=== PATIENT | female | born 1955 | race Hispanic/Latino ===

== ENCOUNTER 2017-10-16 08:12 | Outpatient (CLI) | payer MEDICARE | END 2017-10-16 08:13 | disposition home or self-care (01) | LOC: BICMAMMO 08:12 | PROVIDERS: ATTEND Family Medicine | DX: Z12.31 Encounter for screening mammogram for malignant neoplasm of breast (principal); Z85.41 Personal history of malignant neoplasm of cervix uteri | CPT/HCPCS: 77063; 77067 ==

== ENCOUNTER 2019-03-22 10:29 | Outpatient (CLI) | payer MEDICARE ==
--- NOTE | 2019-03-22 11:47 | MMO ---
Bilateral MAMMO Bilat Screen [facility]ER. CLINICAL HISTORY: Patient is 63 years old and is seen for screening. The patient has no family history of breast cancer. The patient has no personal history of cancer. VIEWS: The views performed were: bilateral craniocaudal with tomosynthesis and bilateral mediolateral oblique with tomosynthesis. FILMS COMPARED: The present examination has been compared to prior imaging studies performed at [facility] on 08/15/2014, 10/02/2015, 10/14/2016 and 10/16/2017. This study has been interpreted with the assistance of computer-aided detection. MAMMOGRAM FINDINGS: There are scattered fibroglandular densities. There are benign appearing and vascular calcifications seen in both breasts. There are no suspicious masses, suspicious calcifications, or new areas of architectural distortion. IMPRESSION: THERE IS NO MAMMOGRAPHIC EVIDENCE OF MALIGNANCY. A ROUTINE FOLLOW-UP MAMMOGRAM IN 1 YEAR IS RECOMMENDED. THE RESULTS OF THIS EXAM WERE SENT TO THE PATIENT. ACR BI-RADS Category 2 - Benign finding MAMMOGRAPHY NOTE: 1. A negative mammogram report should not delay a biopsy if a dominant of clinically suspicious mass is present. 2. Approximately 10% to 15% of breast cancers are not detected by mammography. 3. Adenosis and dense breasts may obscure an underlying neoplasm. Reported by: BERTHA ACOSTA MD Electonically Signed: [id number]
== END 2019-03-22 10:30 | disposition home or self-care (01) ==
LOC: BICMAMMO 10:29
PROVIDERS: ATTEND Nurse Practitioner Family
DX: Z12.31 Encounter for screening mammogram for malignant neoplasm of breast (principal)
CPT/HCPCS: 77063; 77067

== ENCOUNTER 2020-04-15 12:13 | Inpatient (IN) | payer MEDICARE ==
[~2020-04-15 12:13] MED LIST: Iopamidol 370 76% 100 ML VIAL ONE
--- NOTE | 2020-04-15 12:52 | CT ---
CT Brain WO Con: 04/15/2020 12:30 PM CLINICAL HISTORY: Level 2 stroke alert; left-sided facial droop with dysarthria and left arm weakness . IMAGING TECHNIQUE: Multiple CT images were obtained of the brain without IV contrast. COMPARISON: Prior CT the brain dated February 28, 2005 FINDINGS: BRAIN: Evidence of acute infarct: There is loss of the normal blackburn-white differentiation involving the late ral right frontal lobe and right anterior insular cortex on image 11 of series 2 consistent with acute ischemia. Evidence of chronic ischemic change:There is a mild chronic small vessel matter ischemic change. Ther e is a perivascular space involving the inferior aspect of the right globus pallidus. Evidence of intracranial hemorrhage: None. Evidence of brain volume loss:None. Evidence of midline shift: Third ventricle and septum pellucidum are midline. Ventricles: Normal. No hydrocephalus. SKULL: Intact. VISUALIZED PARANASAL SINUSES: There is mild mucosal thickening and air-fluid level within the right sphenoid sinus. MASTOID AIR CELLS: There is a partial mastoidectomy involving the left mastoid air cells. Right mast oid air cells are clear. EXTRACRANIAL SOFT TISSUES: Normal. IMPRESSION: 1. Findings of acute infarct involving the anterior division of the right MCA affecting the right fro ntal lobe and anterior right insular cortex. No intracranial hemorrhage demonstrated. 2. Findings called to Dr. Smith at 12:49 PM on April 15, 2020 3. Mild acute sphenoid sinusitis. 4. Postsurgical change of partial left mastoidectomy.
--- NOTE | 2020-04-15 13:15 | CT ---
CTA of the head with IV contrast and 3-D reformatted imaging. CTA of the neck with IV contrast and 3-D reformatted imaging. INDICATION: 64-year-old female last seen normal last evening with left-sided facial droop, dysarthria and left arm weakness COMPARISON: Noncontrast CT of the brain dated April 15, 2020 and a CTA of the chest dated 6 FINDINGS: CTA OF THE HEAD WITH CONTRAST: CTA OF THE BRAIN: Right ICA: Patent. Right MCA: There is occlusion of the anterior M2 branch of the right MCA. Right SANDOR: Patent. ACOM: Patent. Left ICA: Patent. Left MCA: Patent. Left SANDOR: Patent. PCOMs: There is a origin to the right ASSOCIATE FINANCIAL ADVISOR. Visualized aspects of the left P-comm appear within normal limits. Vertebral arteries: Patent. Basilar Artery: Patent. line manager: origin of the right ASSOCIATE FINANCIAL ADVISOR. Both line manager appear patent. Incidentals: There is diminished cortical vascularity involving the anterior division of the right M CA. CTA OF THE NECK WITH CONTRAST: Right CCA: Patent. Right ICA: Patent. Right Subclavian: Patent. Right Vertebral Artery: Patent. Left CCA: Patent. Left ICA: Patent. Left Subclavian: Patent. Left Vertebral Artery: Patent. Aerodigestive tract: Clear. Parotids/Submandibular/Thyroid glands: Normal. Lymph nodes: No pathologically enlarged lymph nodes. Lung Apices: There are scattered areas of reticular nodularity within both upper lobes. There are pr ominent lymph nodes within the hilar regions and mediastinum. There is a 1.3 cm pretracheal lymph node. There is a 1.8 cm right hilar lymph node. There is a 1.2 cm prevascular lymph node. There is a 1.4 cm lymph node projecting between the esophagus and trachea. There is also some interstitial prominence and suspicion for small bilateral pleural effusions. Bones: No acute osseous abnormality. Incidentals: None. IMPRESSION: 1. Complete occlusion of the anterior M2 branch of the right MCA. 2. Scattered reticular nodularity of both upper lobes with prominent lymphadenopathy is suspicious fo r malignant lymphadenopathy and pulmonary metastatic disease. Follow-up CT of the chest, abdomen and pelvis with IV contrast is recommended for additional evaluation. 3. Interstitial prominence with small bilateral pleural effusions. Recommend correlation for CHF. 4. Findings discussed with Dr. Smith at 1:00 PM on April 15, 2020.
[2020-04-15 13:42] LABS: #Basophils 0.1 thou/uL (0.0-0.2); #Lymphocytes 1.3 thou/uL (1.20-3.40); #Monocytes 0.7 thou/uL (0.11-0.59); #Neutrophils 11.8 thou/uL (1.40-6.50); %Basophils 0.4 % (0.0-1.0); %Eosinophils 0.2 % (0.0-10.0); %Lymphocytes 9.3 % (21.0-51.0); %Monocytes 5.3 % (0.0-10.0); %Neutrophils 84.8 % (42.0-75.0); Hemoglobin 10.5 g/dL (12.0-16.0); Mean Corpuscular HGB CONC 32.7 g/dL (32.0-36.0); Mean Corpuscular Hemoglobin 28.1 pg (27.0-31.0); Mean Corpuscular Volume 85.9 fL (78.0-98.0); Mean Platelet Volume 9.3 fL (7.4-10.4); Platelet Count 210 thou/uL (130-400); RBC Distribution Width 13.7 % (11.5-14.5); Red Blood Cell (RBC) Count 3.75 mill/uL (4.20-5.40); White Blood Cell (WBC) Count 13.9 thou/uL (4.8-10.8)
[2020-04-15 13:57] LABS: INR-International Normal Ratio 1.2; PTT 33.5 sec (22.9-36.1); Prothrombin Time 15.2 sec (12.0-14.7)
[2020-04-15 14:11] LABS: ALT (SGPT) 12 U/L (8-55); AST (SGOT) 11 U/L (5-34); Albumin 3.8 g/dL (3.4-4.8); Alkaline Phosphatase 88 U/L (40-110); Anion Gap 16 mmol/L (10-20); BUN (Urea Nitrogen) 12 mg/dL (9.8-20.1); Bilirubin, Total 0.7 mg/dL (0.2-1.2); Calc. Creatinine Clearance 0 mL/min (70-130); Calcium 8.3 mg/dL (7.8-10.44); Carbon Dioxide 24 mmol/L (23-31); Chloride 101 mmol/L (98-107); Globulin 3.4 g/dL (2.4-3.5); Glucose 247 mg/dL (80-115); Potassium 4.2 mmol/L (3.5-5.1); Protein, Total 7.2 g/dL (6.0-8.3); Sodium 137 mmol/L (136-145)
[2020-04-15] MEDS ORDERED: Aspirin 325 MG TAB ONE (14:38)
--- NOTE | 2020-04-15 14:42 | RAD ---
PORTABLE CHEST ONE VIEW: 04/15/20 at 1:45 p.m. HISTORY: Left facial droop. COMPARISON: 06/14/15. FINDINGS/IMPRESSION: The heart size is prominent. There is pulmonary vascular congestion. No lobar consolidation, pneumoth oraces or pleural effusions are seen. Patchy air space opacities in the right lower lobe cannot be ex cluded. POS: AH
[2020-04-15] MEDS ORDERED: Furosemide 40 MG/4 ML VIAL ONE (15:37)
[2020-04-15] MEDS ORDERED: Acetaminophen 325 MG TAB PO PRN (16:30)
[2020-04-15] MEDS ORDERED: Dextrose 50% Abboject 50 ML SYRINGE SLOW IVP PRN (16:30)
[2020-04-15] MEDS ORDERED: Dextrose 5% in Water 1,000 ML IV PRN (16:30)
[2020-04-15] MEDS ORDERED: hydrALAZINE 20 MG/ML VIAL SLOW IVP PRN (16:38)
[2020-04-15] MEDS ORDERED: Labetalol HCl 100 MG/20 ML VIAL SLOW IVP PRN (16:38)
[2020-04-15] MEDS ORDERED: HumaLOG 300 UNITS/3 ML VIAL SC PRN (16:47)
--- NOTE | 2020-04-15 17:01 | PDOC.HHP ---
Hospitalist HPI - History of Present Illness History of Present Illness: ADMISSION DATE: 04/15/2020 TIME OF ASSESSMENT: 1545 PRIMARY CARE PHYSICIAN: Kevin CHIEF COMPLAINT: Facial droop, wheezing HPI: Patient is a 64-year-old female past medical history significant for diabetes mellitus type 2 and hyperlipidemia. She presents to the ER today after having left-sided facial droop, dysarthria, and left arm weakness that started last night. Patient has also recently been having some wheezing and shortness of breath. She denies orthopnea but states the difficulty breathing has slowly progressed. Denies edema, GI symptoms, contact with sick persons. EMS administered a breathing treatment prior to arrival. Patient states she has had a sharp pain in the middle of her chest and also left arm pain on and off for 4 days. She endorses feeling more tired for the past 3 weeks. Family does state that patient has had difficulty swallowing for some time and usually coughs when she eats. ED COURSE: Vital Signs: Blood pressure 108/88, pulse 90, respiratory rate 18, 98% on 2 L, 98.6 oral Today in the ER they completed brain CT, [place] with contrast, chest x-ray, laboratory work, Covid swab. She was administered furosemide 40 mg IV and aspirin 324 mg p.o. PAST MEDICAL HISTORY: Hyperlipidemia, diabetes mellitus type 2, ovarian cancertreated PAST SURGICAL HISTORY: Cholecystectomy, tonsillectomy, ovarian cyst removal SOCIAL HISTORY: Patient lives at home with family. Denies alcohol, drug, tobacco use. FAMILY HISTORY: Diabetes mellitus type 2 ALLERGIES: No known drug allergies CURRENT MEDICATIONS: Metformin 500 mg once daily Lipitor 10 mg once daily Hospitalist ROS - Review of Systems Respiratory: reports: shortness of breath, SOB with excertion, wheezing Cardiovascular: reports: chest pain All other systems reviewed; all pertinent +/- noted in HPI/Subj - Exam General Appearance: awake alert Eye: PERRL ENT: normocephalic atraumatic Heart: RRR, no murmur, no gallops, normal peripheral pulses Respiratory: normal chest expansion, tachypneic, wheezes Gastrointestinal: soft, non-tender, non-distended, normal bowel sounds Extremities: no edema Skin - other findings: healing burn to R foot Neurological: facial droop Psychiatric: A&O x 3 Hospitalist Results - Labs Result Diagrams: 04/15/20 13:30 04/15/20 13:30 Lab results: WBC 13.9 thou/uL (4.8-10.8) H 04/15/20 13:30 Hgb 10.5 g/dL (12.0-16.0) L 04/15/20 13:30 Hct 32.2 % (36.0-47.0) L 04/15/20 13:30 MCV 85.9 fL (78.0-98.0) 04/15/20 13:30 Plt Count 210 thou/uL (130-400) 04/15/20 13:30 Neutrophils % 84.8 % (42.0-75.0) H 04/15/20 13:30 Sodium 137 mmol/L (136-145) 04/15/20 13:30 Potassium 4.2 mmol/L (3.5-5.1) 04/15/20 13:30 Chloride 101 mmol/L (98-107) 04/15/20 13:30 Carbon Dioxide 24 mmol/L (23-31) 04/15/20 13:30 BUN 12 mg/dL (9.8-20.1) 04/15/20 13:30 Creatinine 1.05 mg/dL (0.6-1.1) 04/15/20 13:30 Glucose 247 mg/dL (80-115) H 04/15/20 13:30 Calcium 8.3 mg/dL (7.8-10.44) 04/15/20 13:30 Total Bilirubin 0.7 mg/dL (0.2-1.2) 04/15/20 13:30 AST 11 U/L (5-34) 04/15/20 13:30 ALT 12 U/L (8-55) 04/15/20 13:30 Alkaline Phosphatase 88 U/L (40-110) 04/15/20 13:30 Troponin I 0.026 ng/mL (< 0.028) 04/15/20 13:30 B-Natriuretic Peptide 638.3 pg/mL (0-100) H 04/15/20 13:30 Serum Total Protein 7.2 g/dL (6.0-8.3) 04/15/20 13:30 Albumin 3.8 g/dL (3.4-4.8) 04/15/20 13:30 - EKG Interpretation EKG: Sinus tachycardia 114 bpm - Radiology Interpretation Chest x-ray Status: image reviewed by me, report reviewed by me Additional Comment: FINDINGS/IMPRESSION: The heart size is prominent. There is pulmonary vascular congestion. No lobar consolidation, pneumothoraces or pleural effusions are seen. Patchy air space opacities in the right lower lobe cannot be excluded. CT scan - head Status: report reviewed by me Additional Comment: FINDINGS: CTA OF THE HEAD WITH CONTRAST: CTA OF THE BRAIN: Right ICA: Patent. Right MCA: There is occlusion of the anterior M2 branch of the right MCA. Right SANDOR: Patent. ACOM: Patent. Left ICA: Patent. Left MCA: Patent. Left SANDOR: Patent. PCOMs: There is a origin to the right LABEL PINKER. Visualized aspects of the left P-comm appear within normal limits. Vertebral arteries: Patent. Basilar Artery: Patent. temporary help agency referral clerk: origin of the right LABEL PINKER. Both temporary help agency referral clerk appear patent. Incidentals: There is diminished cortical vascularity involving the anterior division of the right MCA. CTA OF THE NECK WITH CONTRAST: Right CCA: Patent. Right ICA: Patent. Right Subclavian: Patent. Right Vertebral Artery: Patent. Left CCA: Patent. Left ICA: Patent. Left Subclavian: Patent. Left Vertebral Artery: Patent. Aerodigestive tract: Clear. Parotids/Submandibular/Thyroid glands: Normal. Lymph nodes: No pathologically enlarged lymph nodes. Lung Apices: There are scattered areas of reticular nodularity within both upper lobes. There are prominent lymph nodes within the hilar regions and mediastinum. There is a 1.3 cm pretracheal lymph node. There is a 1.8 cm right hilar lymph node. There is a 1.2 cm prevascular lymph node. There is a 1.4 cm lymph node projecting between the esophagus and trachea. There is also some interstitial prominence and suspicion for small bilateral pleural effusions. Bones: No acute osseous abnormality. Incidentals: None. IMPRESSION: 1. Complete occlusion of the anterior M2 branch of the right MCA. 2. Scattered reticular nodularity of both upper lobes with prominent lymphadenopathy is suspicious for malignant lymphadenopathy and pulmonary metastatic disease. Follow-up CT of the chest, abdomen and pelvis with IV contrast is recommended for additional evaluation. 3. Interstitial prominence with small bilateral pleural effusions. Recommend correlation for CHF CT Brain without contrast FINDINGS: BRAIN: Evidence of acute infarct: There is loss of the normal blackburn-white differentiation involving the lateral right frontal lobe and right anterior insular cortex on image 11 of series 2 consistent with acute ischemia. Evidence of chronic ischemic change:There is a mild chronic small vessel matter ischemic change. There is a perivascular space involving the inferior aspect of the right globus pallidus. Evidence of intracranial hemorrhage: None. Evidence of brain volume loss:None. Evidence of midline shift: Third ventricle and septum pellucidum are midline. Ventricles: Normal. No hydrocephalus. SKULL: Intact. VISUALIZED PARANASAL SINUSES: There is mild mucosal thickening and air-fluid level within the right sphenoid sinus. MASTOID AIR CELLS: There is a partial mastoidectomy involving the left mastoid air cells. Right mastoid air cells are clear. EXTRACRANIAL SOFT TISSUES: Normal. IMPRESSION: 1. Findings of acute infarct involving the anterior division of the right MCA affecting the right fro ntal lobe and anterior right insular cortex. No intracranial hemorrhage demonstrated. 2. Findings called to Dr. Smith at 12:49 PM on April 15, 2020 3. Mild acute sphenoid sinusitis. 4. Postsurgical change of partial left mastoidectomy. Hospitalist H&P A/P - Plan Plan: CVA Acute infarct of right MCA Neurology consultation Echo pending MRI in a.m. TSH, mag, FLP in a.m. Stroke team Aspirin to be taken rectally until can pass speech eval UA orderedis to be collected Dysphagia Failed nursing bedside swallow Has been coughing with eating and drinking for months Strict n.p.o. until speech therapy consultation Aspiration precautions New onset CHF Trial diuresisIV Lasix Pulmonary vascular congestion seen on x-ray, BNP 638.3 Strict I/Os Daily weights Chest Pain Continue to trend troponins Monitor on telemetry Incidental lymphadenopathy finding on CT Unknown etiology History of ovarian cancer We will obtain chest, abdomen, and pelvic CT with IV contrast as recommended by radiology tomorrow Hyperlipidemia FLP in a.m. Continue statin once passes swallow eval by speech therapy Diabetes mellitus type 2 Hold Metformin at this time due to contrast with CT Mild sliding scale insulin Accu-Cheks AC at bedtime VTE prophylaxis in place with SCDs and low-dose Lovenox CODE STATUS: Full Surrogate decision-maker is her daughterYesenia Patient and plan of care have been discussed and agreed upon with Dr. Galvan
[2020-04-15 17:48] VITALS: BMI 37.1
[2020-04-15 19:28] LABS: Bacteria/HPF 2+ HPF (None Seen); Bilirubin Negative (Negative); Blood, Urine Negative (Negative); Clarity Clear (Clear); Glucose, Urine (Dipstick) Normal (Negative); Ketone, Urine Negative (Negative); Leukocyte Negative Leu/uL (Negative); Nitrite Negative (Negative); Protein, Urine (Dipstick) Negative (Neg-Trace); RBC/HPF 0-3 HPF (0-3); Specific Gravity, Urine 1.013 (1.002-1.036); Squamous Epithelial 0-3 HPF (0-3); Urobilinogen Normal mg/dL (Less than 2)
[2020-04-16 05:05] LABS: #Basophils 0.1 thou/uL (0.0-0.2); #Lymphocytes 1.7 thou/uL (1.20-3.40); #Monocytes 0.4 thou/uL (0.11-0.59); %Basophils 0.5 % (0.0-1.0); %Eosinophils 0.4 % (0.0-10.0); %Lymphocytes 15.5 % (21.0-51.0); %Monocytes 3.5 % (0.0-10.0); %Neutrophils 80.2 % (42.0-75.0); Hemoglobin 10.1 g/dL (12.0-16.0); Mean Corpuscular Hemoglobin 29.4 pg (27.0-31.0); Mean Corpuscular Volume 86.3 fL (78.0-98.0); Mean Platelet Volume 9.6 fL (7.4-10.4); Platelet Count 225 thou/uL (130-400); RBC Distribution Width 13.9 % (11.5-14.5); Red Blood Cell (RBC) Count 3.45 mill/uL (4.20-5.40); White Blood Cell (WBC) Count 11.2 thou/uL (4.8-10.8)
[2020-04-16 05:39] LABS: Anion Gap 15 mmol/L (10-20); BUN (Urea Nitrogen) 12 mg/dL (9.8-20.1); Calc. Creatinine Clearance 79 mL/min (70-130); Calcium 8.9 mg/dL (7.8-10.44); Carbon Dioxide 30 mmol/L (23-31); Cardiac Risk 3.4 (Less than 4.5); Chloride 99 mmol/L (98-107); Cholesterol 165 mg/dl (< 200 Desired); Glucose 154 mg/dL (80-115); HDL Cholesterol 48 mg/dL (>60 Neg Risk); LDL Cholesterol, Calculated 99 mg/dL; Potassium 3.5 mmol/L (3.5-5.1); Sodium 140 mmol/L (136-145); Triglycerides 92 mg/dL (Less than 150)
[2020-04-16] MEDS: Furosemide 20 MG/2 ML VIAL SLOW IVP SCH ×2 (05:56→13:57)
[2020-04-16 06:24] LABS: SARS-CoV-2 MS2 Positive; SARS-CoV-2 N Gene Negative; SARS-CoV-2 S Gene Negative; SARS-CoV-2 by NAA Not Detected (NotDetected); SARS-CoV-2 orf1ab Negative
[2020-04-16] MEDS ORDERED: Enoxaparin Sodium 40 MG/0.4 ML SYRINGE SC SCH (09:00)
[2020-04-16] MEDS ORDERED: Aspirin 300 MG Suppository PR SCH (09:00)
--- NOTE | 2020-04-16 09:00 | MRI ---
MRI BRAIN WITHOUT CONTRAST: HISTORY: Left side weakness. FINDINGS: Correlation is made with the CT scan of the previous day. There is restricted diffusion in the right frontal lobe and right anterior insular cortex consistent with acute infarction. The gradient echo sequences demonstrate a small area of blooming in the anter ior aspect of this infarct consistent with blood products. No midline shift or abnormal extraaxial f luid collections are seen. IMPRESSION: Acute infarction in the anterior division of the right middle cerebral artery with a small amount of hemorrhage. POS: AH
[2020-04-16] MEDS ORDERED: Regadenoson 0.4 MG/5 ML SYRINGE ONE (09:02)
[2020-04-16] MEDS ORDERED: Aspirin 325 mg Enteric Coated Tablet PO SCH (10:00)
--- NOTE | 2020-04-16 11:07 | CT ---
CTA of the head with IV contrast and 3-D reformatted imaging. CTA of the neck with IV contrast and 3-D reformatted imaging. INDICATION: 64-year-old female last seen normal last evening with left-sided facial droop, dysarthria and left arm weakness COMPARISON: Noncontrast CT of the brain dated April 15, 2020 and a CTA of the chest dated 6 FINDINGS: CTA OF THE HEAD WITH CONTRAST: CTA OF THE BRAIN: Right ICA: Patent. Right MCA: There is occlusion of the anterior M2 branch of the right MCA. Right SANDOR: Patent. ACOM: Patent. Left ICA: Patent. Left MCA: Patent. Left SANDOR: Patent. PCOMs: There is a origin to the right STATISTICAL TECHNICIAN. Visualized aspects of the left P-comm appear within normal limits. Vertebral arteries: Patent. Basilar Artery: Patent. speech therapy teacher: origin of the right STATISTICAL TECHNICIAN. Both speech therapy teacher appear patent. Incidentals: There is diminished cortical vascularity involving the anterior division of the right M CA. CTA OF THE NECK WITH CONTRAST: Right CCA: Patent. Right ICA: Patent. Right Subclavian: Patent. Right Vertebral Artery: Patent. Left CCA: Patent. Left ICA: Patent. Left Subclavian: Patent. Left Vertebral Artery: Patent. Aerodigestive tract: Clear. Parotids/Submandibular/Thyroid glands: Normal. Lymph nodes: No pathologically enlarged lymph nodes. Lung Apices: There are scattered areas of reticular nodularity within both upper lobes. There are pr ominent lymph nodes within the hilar regions and mediastinum. There is a 1.3 cm pretracheal lymph node. There is a 1.8 cm right hilar lymph node. There is a 1.2 cm prevascular lymph node. There is a 1.4 cm lymph node projecting between the esophagus and trachea. There is also some interstitial prominence and suspicion for small bilateral pleural effusions. Bones: No acute osseous abnormality. Incidentals: None. IMPRESSION: 1. Complete occlusion of the anterior M2 branch of the right MCA. 2. Scattered reticular nodularity of both upper lobes with prominent lymphadenopathy is suspicious fo r malignant lymphadenopathy and pulmonary metastatic disease. Follow-up CT of the chest, abdomen and pelvis with IV contrast is recommended for additional evaluation. 3. Interstitial prominence with small bilateral pleural effusions. Recommend correlation for CHF. 4. Findings discussed with Dr. Smith at 1:00 PM on April 15, 2020. Transcribed Date/Time: 04/16/2020 11:06 AM
--- NOTE | 2020-04-16 11:21 | CON ---
DATE OF CONSULTATION: HISTORY OF PRESENT ILLNESS: Sarah Cameron is a 64-year-old female who does not speak Latvian and translation is provided by her daughter. She was admitted with left facial droop, left arm and leg weakness. She also gives a history of increasing dyspnea on exertion over the last 4 months. She denies any shortness of breath at rest or PND. She has not had any leg edema. She does have episodes of chest discomfort, one of which occurred on April 10 after taking a shower. She states that she had 1 hour of chest pressure that was definitely pleuritic in nature and was continuous. PAST MEDICAL HISTORY: Diabetes. She denies any history of hypertension or hypercholesterolemia. MEDICATIONS: 1. Vitamin C 1000 mg daily. 2. Vitamin B12 of 5000 mcg daily. 3. Fish oil 500 daily. 4. Garlic 1000 mg daily. 5. Losartan 25 daily. 6. Metformin 500 mg b.i.d. 7. Turmeric 500 mg daily. ALLERGIES: NONE. PAST SURGICAL HISTORY: Cholecystectomy, tonsillectomy, ovarian cyst removal. SOCIAL HISTORY: She does not smoke or drink. FAMILY HISTORY: Negative for coronary artery disease. REVIEW OF SYSTEMS: A 10-point review of systems is otherwise unremarkable. PHYSICAL EXAMINATION: VITAL SIGNS: Blood pressure 136/67, pulse of 95. HEENT: PERRL. NECK: Supple. CHEST: Clear. CARDIAC: S1 and S2 normal without any S3, S4, or murmurs. Carotid upstrokes normal without bruits. ABDOMEN: Normal bowel sounds without tenderness. Abdomen is obese. EXTREMITIES: Revealed no clubbing, cyanosis, or edema. NEUROLOGIC: Grossly intact with fairly normal left-sided strength. LABORATORY DATA: EKG reveals sinus tachycardia, but otherwise unremarkable. Head CT revealed an acute infarction involving the anterior division of the right middle cerebral artery. No intracranial hemorrhages demonstrated on head CT. CT of [place] revealed complete occlusion of the anterior M2 branch of the right middle cerebral artery. Brain MRI revealed acute infarction in the anterior division of the right middle cerebral artery with a small amount of hemorrhage. Hemoglobin 10.1, hematocrit 29.8, white count 11,200, platelets 225,000. Sodium 140, potassium 3.5, chloride 99, carbon dioxide 30, BUN 12, creatinine 0.86, glucose 156. BNP 638.3. Cholesterol 165, triglycerides 92, HDL 48, LDL 99. COVID negative. IMPRESSION: 1. Right middle cerebral artery cerebrovascular accident. Small amount of hemorrhage seen on brain MRI. 2. Exertional dyspnea for the last 4 months with elevated BNP. 3. Atypical chest discomfort which is pleuritic in nature. 4. Diabetes. 5. Hypercholesterolemia with LDL of 99 in a diabetic who has had a stroke. 6. Obesity. PLAN: Echocardiogram will be performed to assess left ventricular function. With her atypical chest discomfort, she will undergo adenosine Cardiolite testing. Even if an area of ischemia is found, she is not a candidate for cardiac catheterization at this time due to an area of bleed that was seen on her MRI. Job ID: [id number] MTDD
[2020-04-16] MEDS ORDERED: Iopamidol 370 76% 100 ML VIAL ONE (11:25)
--- NOTE | 2020-04-16 13:02 | PDOC.HOSPP ---
- Subjective Encounter Date: 04/16/20 Encounter Time: 09:30 Subjective: Patient is able to move her right side extremities without any obvious major weakness. Family at bedside. MRI result discussed with them. - Objective Vital Signs & Weight: Vital Signs (12 hours) Temp Pulse Resp BP Pulse Ox 04/16/20 11:10 97.6 F 87 18 100 04/16/20 08:00 98 04/16/20 07:05 98.2 F 95 20 136/67 98 04/16/20 04:00 98.1 F 99 16 135/65 98 Weight Weight 186 lb 8 oz I&O: 04/15/20 04/16/20 04/17/20 06:59 06:59 06:59 Output Total 600 Balance -600 Result Diagrams: 04/16/20 04:33 04/16/20 04:33 Additional Labs: Accuchecks 04/16/20 04/16/20 04/15/20 10:29 05:56 21:33 POC Glucose 234 H 156 H 139 H 04/15/20 13:06 POC Glucose 228 H Hospitalist ROS - Medication Medications: Active Medications Generic Name Dose Route Start Last Admin Trade Name Freq PRN Reason Stop Dose Admin Furosemide 20 mg 04/16/20 06:00 04/16/20 05:56 Furosemide 20 Mg/2 Ml Vial SLOW IVP 20 mg 0600,1400 VIR[place]IE Administration - Exam General Appearance: NAD, awake alert Eye: PERRL ENT: normocephalic atraumatic Neck: supple Heart: RRR, normal peripheral pulses Respiratory: CTAB, normal chest expansion Gastrointestinal: soft, normal bowel sounds Neurological: no focal deficits Psychiatric: A&O x 3 Hosp A/P - Plan acte infarct of right MCA Mildly hemorrhagic stroke Neurology consultation MRI --- acute infarct in the anterior division of the right MCA with a small amount of hemorrhage TSH in the normal range Echo showed EF of 55% with diastolic dysfunction moderate mitral regurgitation Stroke team Aspirin to be taken rectally until can pass speech eval------------------> disco ntinued aspirin and DVT prophylaxis of Lovenox for now. We will repeat the CT head tomorrow. Due to hemorrhagic stroke I will also consult neurosurgery. UA orderedis to be collected Dysphagia Failed nursing bedside swallow Has been coughing with eating and drinking for months Strict n.p.o. until speech therapy consultation Aspiration precautions New onset CHF Dyspnea on exertion Trial diuresisIV Lasix Pulmonary vascular congestion seen on x-ray, BNP 638.3 Strict I/Os Daily weights-----follow-up with the echo. Chest Pain Continue to trend troponins Monitor on telemetry --Appears ischemic work-up in terms of cath would not be advisable at this point given the hemorrhagic stroke -She will be going through stress test in the next few days Incidental lymphadenopathy finding on CT Unknown etiology History of ovarian cancer We will obtain chest, abdomen, and pelvic CT with IV contrast as recommended by radiology tomorrow Hyperlipidemia LDL of 99 Continue statin once passes swallow eval by speech therapy Diabetes mellitus type 2 Hold Metformin at this time due to contrast with CT Mild sliding scale insulin Accu-Cheks AC at bedtime VTE prophylaxis in place with SCDs Follow-up on [place] CT -We will repeat the CT head tomorrow to monitor the hemorrhagic stroke
--- NOTE | 2020-04-16 14:10 | CT ---
CT CHEST, ABDOMEN AND PELVIS WITH IV CONTRAST: 04/16/20 INDICATIONS: History of ovarian cancer. Lymphadenopathy. Comparison made to CT chest from 06/14/15. No prior CT abdomen available. CT CHEST: Review of the mediastinum reveals nonspecific lymph nodes. There is a paratracheal node measuring 1.5 cm not significantly changed since the prior exam. There are nonspecific carinal nodes which appear stable. No other evidence of adenopathy. Thoracic aorta and pulmonary arteries are unremarkable. The lungs appear clear. No infiltrate. There is mild vascular congestion. The osseous structures are unremarkable. Vertebral bodies maintain normal height. IMPRESSION: Nonspecific mediastinal lymph nodes are stable from 2016. No acute process. CT ABDOMEN AND PELVIS: Liver, spleen and pancreas unremarkable. Post cholecystectomy change. Stomach and duodenum unremarkab le. Adrenal glands normal. Kidneys unremarkable. Small bowel loops normal. Colon unremarkable. Aorta normal caliber. No adenopathy seen in the abdomen or pelvis. Images through the pelvis show mildly distended urinary bladder. The uterus and adnexa appear unremar kable. Osseous structures show no acute process. There is a posterior spondylolysis at L5-S1 with mil d anterior spondylolisthesis at this level. IMPRESSION: 1. No acute abnormality identified. 2. Posterior spondylolysis and grade I spondylolisthesis at L5-S1. POS: AGW
--- NOTE | 2020-04-16 14:38 | NM ---
Nuclear medicine Cardiac myocardial perfusion SPECT Ejection fraction study Wall motion cine: DATE:04/16/2020 12:09 PM INDICATION: New onset CHF TECHNIQUE: Stress only myocardial perfusion evaluation. Stress study: Technetium 99m-sestamibi (Cardiolite) dose:28.2 mCi FINDINGS: Cardiac (myocardial perfusion) SPECT There are appreciable myocardial perfusion defects. Ejection fraction study Left ventricular EF = 68% Wall motion cine Normal wall motion and thickening IMPRESSION: No appreciable myocardial perfusion defect seen on the stress only myocardial perfusion evaluation.
--- NOTE | 2020-04-16 17:02 | CON ---
DATE OF CONSULTATION: 04/16/2020 CONSULTING PHYSICIAN: Hospitalist Service. IMPRESSION: 1. 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 2. Diabetes. 3. Small secondary ischemic area hemorrhage of no clinical significance. PLAN: 1. Continue aspirin and a statin. 2. Further workup of lymphadenopathy as necessary. HISTORY OF PRESENT ILLNESS: Ms. Cameron is a 64-year-old female, presented with left-sided weakness and dysarthria yesterday. Initial CT was unremarkable. Her CT angiogram showed a right M2 segment occlusion. She also was noted to have some lymphadenopathy present. She had a followup MRI of the brain, which showed a similar area of ischemic injury as noted on CT. There is a small area of hemorrhage within the midst of it, less than a centimeter in size. Her echocardiogram showed ejection fraction of 50% to 55%. Her lab work was otherwise unremarkable. Her neurologic deficits have significantly improved. She was not on aspirin or statin prior to admission. PAST HISTORY: Diabetes. ALLERGIES: NONE. SOCIAL HISTORY: No tobacco or alcohol. FAMILY HISTORY: Positive for 2 COVID deaths in her siblings. REVIEW OF SYSTEMS: Ten-system review of systems otherwise negative. PHYSICAL EXAMINATION: GENERAL: She is an overweight, middle-aged woman, lying in bed, in no acute distress. VITAL SIGNS: Blood pressure 108/63, pulse 95, respirations 16, and temperature 98.2. HEENT: Pupils equal and reactive. Conjunctivae clear. Oropharynx clear. NECK: Supple. No lymphadenopathy. ABDOMEN: Soft and nontender. EXTREMITIES: No cyanosis or edema. SKIN: Clear. NEUROLOGIC: She was alert and cooperative. She mostly spoke Jamaican. I did not appreciate any dysarthria. Her face appeared to be symmetric. She had good antigravity strength in all 4 extremities. She has slightly diminished hand tobacco hanger on the left. Sensation was intact to light touch. She can walk independently. No abnormal movements were seen. LABORATORY STUDIES: White blood cell count 11.2 and hemoglobin 10.1. Serum electrolytes were unremarkable other than mildly elevated glucoses. Cholesterol ratio was 3.4. Her urine showed 4-6 white cells with 2+ bacteria. Her COVID test was negative. SUMMARY: A middle-aged female with thrombotic stroke on the right. There is a small secondary hemorrhage of no clinical consequence. I do not see any reason to stop aspirin. I would be happy to follow up with her as an outpatient. Job ID: [id number]
[2020-04-16] MEDS: HumaLOG 300 UNITS/3 ML VIAL SC PRN (17:48)
[2020-04-16] MEDS: Atorvastatin Calcium 40 MG TAB PO SCH (20:07)
[2020-04-17 05:04] LABS: #Basophils 0.1 thou/uL (0.0-0.2); #Eosinphils 0.2 thou/uL (0.0-0.7); #Lymphocytes 2.8 thou/uL (1.20-3.40); #Monocytes 0.5 thou/uL (0.11-0.59); #Neutrophils 6.7 thou/uL (1.40-6.50); %Basophils 0.5 % (0.0-1.0); %Eosinophils 2.2 % (0.0-10.0); %Lymphocytes 27.5 % (21.0-51.0); %Monocytes 4.8 % (0.0-10.0); %Neutrophils 64.9 % (42.0-75.0); Hemoglobin 10.5 g/dL (12.0-16.0); Mean Corpuscular HGB CONC 32.8 g/dL (32.0-36.0); Mean Corpuscular Hemoglobin 27.7 pg (27.0-31.0); Mean Corpuscular Volume 84.5 fL (78.0-98.0); Mean Platelet Volume 9.2 fL (7.4-10.4); Platelet Count 282 thou/uL (130-400); RBC Distribution Width 13.6 % (11.5-14.5); White Blood Cell (WBC) Count 10.3 thou/uL (4.8-10.8)
[2020-04-17 05:21] LABS: Anion Gap 13 mmol/L (10-20); BUN (Urea Nitrogen) 18 mg/dL (9.8-20.1); Calc. Creatinine Clearance 79 mL/min (70-130); Calcium 8.9 mg/dL (7.8-10.44); Carbon Dioxide 32 mmol/L (23-31); Chloride 96 mmol/L (98-107); Glucose 143 mg/dL (80-115); Potassium 3.1 mmol/L (3.5-5.1); Sodium 138 mmol/L (136-145)
[2020-04-17] MEDS: Furosemide 20 MG/2 ML VIAL SLOW IVP SCH ×2 (05:34→16:10)
[2020-04-17] MEDS ORDERED: Digoxin 0.5 MG/2 ML AMP SLOW IVP SCH ×4 (08:00→22:00)
[2020-04-17] MEDS: Aspirin 325 mg Enteric Coated Tablet PO SCH (08:09)
[2020-04-17] MEDS ORDERED: Potassium Chloride 20 MEQ TAB PO SCH (09:00)
[2020-04-17] MEDS ORDERED: Diltiazem 125 MG in Sodium Chloride 0.9% 100 ML IVPB SCH (09:15)
[2020-04-17] MEDS ORDERED: Dronedarone HCl 400 MG TAB PO SCH (09:45)
--- NOTE | 2020-04-17 10:52 | PDOC.HOSPP ---
- Subjective Encounter Date: 04/17/20 Encounter Time: 09:45 Subjective: Patient seen this morning. She has a mild headache on the right side. Her blood pressure is normotensive she does not have any blurriness or weakness or sensory impairment. She is ambulating. She is able to have her p.o. intake. Repeat CT scan showed unchanged minimal hypodensity in the anterior segment of the right MCA infarction which is evolving. no large volume hemorrhage - Objective Vital Signs & Weight: Vital Signs (12 hours) Temp Pulse Resp BP Pulse Ox 04/17/20 08:09 159 H 04/17/20 07:15 98.3 F 145 H 18 105/67 94 L 04/17/20 03:20 98.2 F 92 18 125/69 95 04/16/20 23:25 98.4 F 104 H 22 H 129/76 96 Weight Weight 187 lb 3.2 oz I&O: 04/16/20 04/17/20 04/18/20 06:59 06:59 06:59 Intake Total 1320 Output Total 600 1200 Balance -600 120 Result Diagrams: 04/17/20 04:34 04/17/20 04:34 Additional Labs: Accuchecks 04/17/20 04/16/20 04/16/20 05:27 19:49 16:59 POC Glucose 134 H 199 H 225 H Hospitalist ROS - Medication Medications: Active Medications Generic Name Dose Route Start Last Admin Trade Name Freq PRN Reason Stop Dose Admin Acetaminophen 650 mg 04/15/20 16:30 04/17/20 07:17 Acetaminophen 325 Mg Tab PO 650 mg Q4H PRN Administration Headache/Fever/Mild Pain (1-3) Aspirin 325 mg 04/17/20 09:00 04/17/20 08:09 Aspirin 325 Mg Enteric Coated Tablet PO 325 mg DAILY [place] Administration Atorvastatin Calcium 40 mg 04/16/20 21:00 04/16/20 20:07 Atorvastatin Calcium 40 Mg Tab PO 40 mg HS [place] Administration Dronedarone 400 mg 04/17/20 09:45 04/17/20 10:39 Dronedarone Hcl 400 Mg Tab PO 04/17/20 12:00 400 mg NOW [place] Administration Furosemide 20 mg 04/16/20 06:00 04/17/20 05:34 Furosemide 20 Mg/2 Ml Vial SLOW IVP 20 mg 0600,1400 [place] Administration Insulin Human Lispro 0 units 04/15/20 16:47 04/16/20 17:48 Humalog 300 Units/3 Ml Vial SC 3 units .MILD SLIDING SCALE PRN Administration Mild Correctional Scale Potassium Chloride 40 meq 04/17/20 09:00 04/17/20 10:39 Potassium Chloride 20 Meq Tab PO 04/17/20 11:00 40 meq 0900 [place] Administration Sodium Chloride 10 ml 04/15/20 16:30 04/16/20 13:57 Flush - Normal Saline 10 Ml Syringe IVF 10 ml PRN PRN Administration Saline Flush - Exam General Appearance: awake alert Eye: PERRL ENT: normocephalic atraumatic Neck: supple Heart: RRR Respiratory: CTAB, normal chest expansion Gastrointestinal: soft, normal bowel sounds Neurological: cranial nerve grossly intact, no focal deficits Psychiatric: normal affect, normal behavior, A&O x 3 Hosp A/P - Plan acte infarct of right MCA Mildly hemorrhagic stroke Neurology consultation MRI --- acute infarct in the anterior division of the right MCA with a small amount of hemorrhage TSH in the normal range Echo showed EF of 55% with diastolic dysfunction moderate mitral regurgitation Stroke team Aspirin to be taken rectally until can pass speech eval------------------> discontinued aspirin and DVT prophylaxis of Lovenox for now. We will repeat the CT head tomorrow. Due to hemorrhagic stroke I will also consult neurosurgery. UA orderedis to be collected Dysphagia Failed nursing bedside swallow Has been coughing with eating and drinking for months Strict n.p.o. until speech therapy consultation Aspiration precautions New onset CHF Dyspnea on exertion Trial diuresisIV Lasix Pulmonary vascular congestion seen on x-ray, BNP 638.3 Strict I/Os Daily weights-----follow-up with the echo. Chest Pain Continue to trend troponins Monitor on telemetry --Appears ischemic work-up in terms of cath would not be advisable at this point given the hemorrhagic stroke -She will be going through stress test in the next few days Incidental lymphadenopathy finding on CT Unknown etiology History of ovarian cancer We will obtain chest, abdomen, and pelvic CT with IV contrast as recommended by radiology tomorrow----------------> no abnormality noted Hyperlipidemia LDL of 99 Continue statin once passes swallow eval by speech therapy Diabetes mellitus type 2 Hold Metformin at this time due to contrast with CT Mild sliding scale insulin 18th she has a mild headache on the right side. Her blood pressure is normotensive she does not have any blurriness or weakness or sensory impairment. She is ambulating. She is able to have her p.o. intake. Repeat CT scan showed unchanged minimal hypodensity in the anterior segment of the right MCA infarction which is evolving. no large volume hemorrhage. Monitor her blood pressure and neurological status closely. Okay to resume aspirin and Lovenox for DVT prophylaxis. Discussed regarding rehab options and patient preferred to go home.
--- NOTE | 2020-04-17 11:07 | CT ---
CT Brain WO Con History: Evaluate bleed progression Comparison: Brain CT prior day Findings: The anterior MCA territory infarction history of all with minimal hyperdensity within the p arenchyma. No large volume hemorrhage. No midline shift. No mass effect. No new acute superimposed infarction ascites anterior right MCA inf arction. No effacement of the right lateral ventricle. Globes are intact. Old right lacunar infarct. Impression: Unchanged minimal hyperdensity within the anterior segment right MCA territory infarction which is evolving. No large volume hemorrhage.
[2020-04-17] MEDS: HumaLOG 300 UNITS/3 ML VIAL SC PRN ×2 (12:07→16:36)
[2020-04-17] MEDS: Dronedarone HCl 400 MG TAB PO SCH (16:36)
[2020-04-17] MEDS ORDERED: Sodium Chloride 0.9% 250 ML 250 ML IVPB SCH (17:30)
[2020-04-17] MEDS: Sodium Chloride 0.9% 1,000 ML IV SCH (18:43)
[2020-04-17] MEDS ORDERED: Diltiazem HCl 125 MG, Admixture Fee 1 EACH in Sodium Chloride 0.9% 100 ML IVPB PRN (20:43)
[2020-04-17] MEDS: Atorvastatin Calcium 40 MG TAB PO SCH (21:55)
[2020-04-17] MEDS: Digoxin 0.5 MG/2 ML AMP SLOW IVP PRN (22:23)
[2020-04-18 04:51] LABS: #Basophils 0.1 thou/uL (0.0-0.2); #Eosinphils 0.2 thou/uL (0.0-0.7); #Lymphocytes 3.3 thou/uL (1.20-3.40); #Monocytes 0.6 thou/uL (0.11-0.59); #Neutrophils 6.2 thou/uL (1.40-6.50); %Basophils 0.7 % (0.0-1.0); %Eosinophils 2.1 % (0.0-10.0); %Lymphocytes 31.4 % (21.0-51.0); %Monocytes 5.7 % (0.0-10.0); %Neutrophils 60.1 % (42.0-75.0); Hemoglobin 10.3 g/dL (12.0-16.0); Mean Corpuscular HGB CONC 31.6 g/dL (32.0-36.0); Mean Corpuscular Hemoglobin 26.8 pg (27.0-31.0); Mean Corpuscular Volume 84.7 fL (78.0-98.0); Mean Platelet Volume 8.7 fL (7.4-10.4); Platelet Count 306 thou/uL (130-400); RBC Distribution Width 13.3 % (11.5-14.5); Red Blood Cell (RBC) Count 3.85 mill/uL (4.20-5.40); White Blood Cell (WBC) Count 10.3 thou/uL (4.8-10.8)
[2020-04-18 05:10] LABS: Anion Gap 15 mmol/L (10-20); BUN (Urea Nitrogen) 21 mg/dL (9.8-20.1); Calc. Creatinine Clearance 68 mL/min (70-130); Calcium 8.6 mg/dL (7.8-10.44); Carbon Dioxide 27 mmol/L (23-31); Chloride 100 mmol/L (98-107); Glucose 134 mg/dL (80-115); Potassium 3.5 mmol/L (3.5-5.1); Sodium 138 mmol/L (136-145)
[2020-04-18] MEDS ORDERED: Potassium Chloride 20 MEQ TAB PO SCH (09:15)
[2020-04-18] MEDS: Aspirin 325 mg Enteric Coated Tablet PO SCH (09:27)
[2020-04-18] MEDS: Enoxaparin Sodium 40 MG/0.4 ML SYRINGE SC SCH (09:27)
[2020-04-18] MEDS: Dronedarone HCl 400 MG TAB PO SCH (09:27)
[2020-04-18] MEDS: Digoxin 0.5 MG/2 ML AMP SLOW IVP PRN (09:28)
--- NOTE | 2020-04-18 12:50 | PDOC.CPN ---
- Subjective Date: 04/18/20 Time: 12:00 Interval history: No overnight events. Remains in AF - Review of Systems General: denies: fever/chills, weight/appetite/sleep changes, night sweats, fatigue Respiratory: denies: cough, congestion, shortness of breath, exercise intolerance Gastrointestinal: denies: nausea, vomiting, diarrhea, constipation, abd pain, GI bleeding Neurological: reports: numbness, weakness - Objective Allergies/Adverse Reactions: Allergies Allergy/AdvReac Type Severity Reaction Status Date / Time No Known Allergies Allergy Verified 04/15/20 18:30 Visit Medications: Current Medications Acetaminophen (Acetaminophen 325 Mg Tab) 650 mg PO Q4H PRN PRN Reason: Headache/Fever/Mild Pain (1-3) Last Admin: 04/17/20 07:17 Dose: 650 mg Documented by: Aspirin (Aspirin 325 Mg Enteric Coated Tablet) 325 mg PO DAILY [facility] Last Admin: 04/18/20 09:27 Dose: 325 mg Documented by: Atorvastatin Calcium (Atorvastatin Calcium 40 Mg Tab) 40 mg PO HS [facility] Last Admin: 04/17/20 21:55 Dose: 40 mg Documented by: Dextrose/Water (Dextrose 50% Abboject 50 Ml Syringe) 25 gm SLOW IVP PRN PRN PRN Reason: Hypoglycemia Digoxin (Digoxin 0.5 Mg/2 Ml Amp) 0.125 mg SLOW IVP Q6H PRN PRN Reason: HR > 90 Last Admin: 04/18/20 09:28 Dose: 0.125 mg Documented by: Dronedarone (Dronedarone Hcl 400 Mg Tab) 400 mg PO BID-[facility] Last Admin: 04/18/20 09:27 Dose: 400 mg Documented by: Enoxaparin Sodium (Enoxaparin Sodium 40 Mg/0.4 Ml Syringe) 40 mg SC DAILY [facility] Last Admin: 04/18/20 09:27 Dose: 40 mg Documented by: Glucagon (Glucagon 1 Mg/Ml Vial) 1 mg IM PRN PRN PRN Reason: Hypoglycemia Hydralazine HCl (Hydralazine 20 Mg/Ml Vial) 10 mg SLOW IVP Q4H PRN PRN Reason: BP > 220/110 Dextrose/Water (D5w) 1,000 mls @ 0 mls/hr IV .Q0M PRN PRN Reason: Hypoglycemia Sodium Chloride (Normal Saline 0.9%) 1,000 mls @ 50 mls/hr IV .Q20H [place] Last Admin: 04/17/20 18:43 Dose: 1,000 mls Documented by: Diltiazem HCl 125 mg/Miscellaneous Medication 1 each/ Sodium Chloride 125 mls @ 2.5 mls/hr IVPB INF PRN; Protocol PRN Reason: HR SUSTAINED >120 & SBP >100 Insulin Human Lispro (Humalog 300 Units/3 Ml Vial) 0 units SC .MILD SLIDING SCALE PRN PRN Reason: Mild Correctional Scale Last Admin: 04/17/20 16:36 Dose: 3 units Documented by: Insulin Human Lispro (Humalog 300 Units/3 Ml Vial) 0 units SC .BEDTIME SLIDING SC PRN PRN Reason: Bedtime Correctional Scale Labetalol HCl (Labetalol Hcl 100 Mg/20 Ml Vial) 20 mg SLOW IVP Q1H PRN PRN Reason: BP > 220/110 Potassium Chloride (Potassium Chloride 20 Meq Tab) 20 meq PO BID-[facility] Sodium Chloride (Flush - Normal Saline 10 Ml Syringe) 10 ml IVF PRN PRN PRN Reason: Saline Flush Last Admin: 04/16/20 13:57 Dose: 10 ml Documented by: Vital Signs & Weight: Vital Signs Temp Pulse Resp BP BP Pulse Ox 04/18/20 11:15 98.2 F 111 H 17 85/69 L 95 04/18/20 09:28 116 H 04/18/20 07:30 110/75 04/18/20 07:08 98.8 F 98 20 96 04/18/20 03:38 98.2 F 98 20 109/55 L 95 Weight 187 lb 11.2 oz - Physical Exam General: no apparent distress HEENT: mucus membranes moist Cardiac: other (IRR IRR) Lungs: normal exam Abdomen: soft, non-tender Musculoskeletal: no pain - Labs Result Diagrams: 04/18/20 04:36 04/18/20 04:36 Troponin/CKMB Troponin I 0.026 ng/mL (< 0.028) 04/15/20 13:30 - Assessment/Plan Assessment/Plan: 1. CVA 2. AF Discussed with SHAYLEE. He recommnends stopping Multaq and rate-control only. Continue Dig and ASA. 04/18/2020 SHAYLEE Pt seen and examined DC multaq Pt with PAF and has been in afib over the last 2 days Pt at risk of repeat CVA (discussed with pt and family) but given hemmorhage, at risk of cerebral hemorrhage. Recommend rate cotrol and ASA (per Neurology). Recs on ACT timing per neurology
[2020-04-18] MEDS: HumaLOG 300 UNITS/3 ML VIAL SC PRN (13:31)
--- NOTE | 2020-04-18 15:21 | EKG ---
Test Reason : Blood Pressure : / mmHG Vent. Rate : 114 BPM Atrial Rate : 114 BPM P-R Int : 164 ms QRS Dur : 074 ms QT Int : 318 ms P-R-T Axes : 016 061 069 degrees QTc Int : 438 ms Sinus tachycardia Otherwise normal ECG Confirmed by BRENT LOPEZ DO ([id number]), restaurant expeditor MIRTHA ANDERSON ([id number]) on 04/18/2020 3:21:23 PM Referred By: Confirmed By:BRENT LOPEZ DO
[2020-04-18] MEDS: Potassium Chloride 20 MEQ TAB PO SCH (18:42)
[2020-04-18] MEDS: Sodium Chloride 0.9% 1,000 ML IV SCH (19:02)
--- NOTE | 2020-04-18 20:11 | PDOC.HOSPP ---
- Subjective Encounter Date: 04/18/20 Encounter Time: 19:00 Subjective: Patient seen and examined for acute CVA. Denies any new focal deficit. No chest pain or shortness of breath reported. - Objective Vital Signs & Weight: Vital Signs (12 hours) Temp Pulse Resp BP BP Pulse Ox 04/18/20 19:54 97.3 F L 90 18 94/69 99 04/18/20 15:04 98.7 F 89 16 107/83 97 04/18/20 13:35 103/77 04/18/20 11:15 98.2 F 111 H 17 85/69 L 95 04/18/20 09:28 116 H Weight Weight 187 lb 11.2 oz I&O: 04/17/20 04/18/20 04/19/20 06:59 06:59 06:59 Intake Total 1320 552 861 Output Total 1200 Balance 120 552 861 Result Diagrams: 04/19/20 04:38 04/19/20 04:38 Additional Labs: Accuchecks 04/18/20 04/18/20 04/18/20 16:30 11:09 05:58 POC Glucose 146 H 256 H 132 H 04/17/20 21:05 POC Glucose 154 H Radiology Reviewed by me: Yes (MRI brain reviewed) EKG Reviewed by me: Yes (Atrial fibrillation on telemetry) Hospitalist ROS - Review of Systems Respiratory: denies: cough, dry, shortness of breath, hemoptysis, SOB with excer tion, pleuritic pain, sputum, wheezing, other Cardiovascular: denies: chest pain, palpitations, orthopnea, paroxysmal noc. dyspnea, edema, light headedness, other - Medication Medications: Active Medications Generic Name Dose Route Start Last Admin Trade Name Freq PRN Reason Stop Dose Admin Acetaminophen 650 mg 04/15/20 16:30 04/17/20 07:17 Acetaminophen 325 Mg Tab PO 650 mg Q4H PRN Administration Headache/Fever/Mild Pain (1-3) Aspirin 325 mg 04/17/20 09:00 04/18/20 09:27 Aspirin 325 Mg Enteric Coated Tablet PO 325 mg DAILY [place] Administration Atorvastatin Calcium 40 mg 04/16/20 21:00 04/17/20 21:55 Atorvastatin Calcium 40 Mg Tab PO 40 mg HS [place] Administration Enoxaparin Sodium 40 mg 04/18/20 09:00 04/18/20 09:27 Enoxaparin Sodium 40 Mg/0.4 Ml Syringe SC 40 mg DAILY [place] Administration Sodium Chloride 1,000 mls @ 50 mls/hr 04/17/20 18:15 04/18/20 19:02 Normal Saline 0.9% IV 1,000 mls .Q20H [place] Administration Insulin Human Lispro 0 units 04/15/20 16:47 04/18/20 13:31 Humalog 300 Units/3 Ml Vial SC 4 units .MILD SLIDING SCALE PRN Administration Mild Correctional Scale Potassium Chloride 20 meq 04/18/20 17:00 04/18/20 18:42 Potassium Chloride 20 Meq Tab PO 20 meq BID-WM [place] Administration Sodium Chloride 10 ml 04/15/20 16:30 04/16/20 13:57 Flush - Normal Saline 10 Ml Syringe IVF 10 ml PRN PRN Administration Saline Flush - Exam General Appearance: NAD Neck: supple, no JVD Heart: no gallops, no rubs, irregular Respiratory: no rales, normal chest expansion Gastrointestinal: soft, non-distended Extremities: no cyanosis Neurological: no new deficit Psychiatric: normal affect, A&O x 3 Hosp A/P - Plan Patient is a 64-year-old female with diabetes mellitus type 2 and hyperlipidemia presented to the emergency room with strokelike symptoms. CTA of the head and neck showed complete occlusion of the anterior M2 branch of the right MCA. CT brain showed acute infarction in the right MCA distribution. She was started on aspirin. Chest x-ray showed pulmonary vascular congestion. There was some c oncern for malignancy on the CTA of the neck. She underwent CT scan of the chest abdomen and pelvis that showed nonspecific mediastinal lymph nodes which were stable since 2016. CT abdomen was negative for acute findings. MRI of the brain showed acute infarction in the anterior division of the right middle cerebral artery with a small amount of hemorrhage. Patient was evaluated by neurology who recommended aspirin with statin. Due to small amount of hemorrhage on the MRI of the brain the case was discussed with PA for Dr. Manrique who recommended repeat CT scan of the brain on 04/20 and to hold anticoagulation except for DVT prophylaxis and aspirin. Patient also had atypical chest pain for which she was evaluated by cardiology. Echocardiogram showed ejection fraction of 50 to 55% with diastolic dysfunction, moderate mitral regurgitation, moderate aortic regurgitation and mild tricuspid regurgitation. She underwent a stress test on 04/16 that was negative for reversible ischemia. On 04/17 patient converted to atrial flutter with heart rate in 130s to 150s. She was started on Multaq that was later discontinued. Her rate was controlled with digoxin. Assessment: Acute right MCA distribution CVA with small amount of hemorrhage New onset atrial fibrillation/flutter with RVR not a candidate for anticoagulation due to hemorrhagic conversion Atypical chest pain with negative stress test Hyperlipidemia Chronic diastolic heart failure Obesity with a BMI 37.2 Chronic anemia probably due to nutritional deficiency Hypokalemia Mediastinal lymphadenopathy of unclear etiology Swallow dysfunction Plan: Continue aspirin with statin. Check digoxin level in a.m. Cardiology and neurology input appreciated. Case discussed with neurosurgery who recommended repeat CT brain on 04/20. Hold anticoagulation for now until repeat CT on 1221 per neurosurgery. Continue Lovenox for DVT prophylaxis. Stroke team. Home health care set up. Continue other medications as above. Plan discussed with the family at the bedside.
[2020-04-18] MEDS: Atorvastatin Calcium 40 MG TAB PO SCH (21:16)
[2020-04-19 05:05] LABS: #Basophils 0.1 thou/uL (0.0-0.2); #Eosinphils 0.5 thou/uL (0.0-0.7); #Lymphocytes 2.5 thou/uL (1.20-3.40); #Monocytes 0.5 thou/uL (0.11-0.59); #Neutrophils 5.6 thou/uL (1.40-6.50); %Basophils 0.6 % (0.0-1.0); %Eosinophils 5.3 % (0.0-10.0); %Lymphocytes 27.3 % (21.0-51.0); %Monocytes 5.5 % (0.0-10.0); %Neutrophils 61.3 % (42.0-75.0); Hemoglobin 10.5 g/dL (12.0-16.0); Mean Corpuscular HGB CONC 32.6 g/dL (32.0-36.0); Mean Corpuscular Hemoglobin 27.9 pg (27.0-31.0); Mean Corpuscular Volume 85.4 fL (78.0-98.0); Mean Platelet Volume 8.9 fL (7.4-10.4); Platelet Count 288 thou/uL (130-400); RBC Distribution Width 13.2 % (11.5-14.5); Red Blood Cell (RBC) Count 3.76 mill/uL (4.20-5.40); White Blood Cell (WBC) Count 9.1 thou/uL (4.8-10.8)
[2020-04-19 05:25] LABS: Digoxin 0.63 ng/mL (0.8-2.0)
[2020-04-19 05:28] LABS: ALT (SGPT) 11 U/L (8-55); AST (SGOT) 15 U/L (5-34); Albumin 3.3 g/dL (3.4-4.8); Alkaline Phosphatase 69 U/L (40-110); Anion Gap 13 mmol/L (10-20); BUN (Urea Nitrogen) 20 mg/dL (9.8-20.1); Bilirubin, Total 0.2 mg/dL (0.2-1.2); Calc. Creatinine Clearance 73 mL/min (70-130); Calcium 8.6 mg/dL (7.8-10.44); Carbon Dioxide 25 mmol/L (23-31); Chloride 105 mmol/L (98-107); Globulin 3.7 g/dL (2.4-3.5); Glucose 148 mg/dL (80-115); Magnesium 2.1 mg/dL (1.6-2.6); Phosphorus 3.5 mg/dL (2.3-4.7); Sodium 139 mmol/L (136-145)
[2020-04-19] MEDS: Potassium Chloride 20 MEQ TAB PO SCH (09:43)
[2020-04-19] MEDS: Aspirin 325 mg Enteric Coated Tablet PO SCH (09:43)
[2020-04-19] MEDS: Enoxaparin Sodium 40 MG/0.4 ML SYRINGE SC SCH (09:43)
[2020-04-19] MEDS: HumaLOG 300 UNITS/3 ML VIAL SC PRN ×2 (11:18→17:19)
--- NOTE | 2020-04-19 15:06 | PDOC.HOSPP ---
- Subjective Encounter Date: 04/19/20 Encounter Time: 09:00 Subjective: Patient seen and examined for acute CVA. Denies any chest pain, shortness of breath, palpitations or new focal deficit. No fever or chills reported. Tolerating current consistency. - Objective Vital Signs & Weight: Vital Signs (12 hours) Temp Pulse Pulse Pulse Resp BP BP 04/19/20 11:57 98.1 F 84 16 04/19/20 10:06 101 H 101 H 147/84 H 111/54 L 04/19/20 08:00 04/19/20 07:54 98.4 F 76 16 04/19/20 03:47 98.5 F 98 18 BP Pulse Ox 04/19/20 11:57 122/71 94 L 04/19/20 10:06 04/19/20 08:00 94 L 04/19/20 07:54 129/82 94 L 04/19/20 03:47 112/71 95 Weight Weight 190 lb 8 oz I&O: 04/18/20 04/19/20 04/20/20 06:59 06:59 06:59 Intake Total 552 1564 960 Balance 552 1564 960 Result Diagrams: 04/19/20 04:38 04/19/20 04:38 Additional Labs: Accuchecks 04/19/20 04/19/20 04/18/20 10:41 05:37 20:34 POC Glucose 204 H 136 H 203 H 04/18/20 16:30 POC Glucose 146 H Abnormal Lab Results - Last 48 hrs 04/18/20 04:36: BUN 21 H, Creatinine 1.12 H 04/18/20 04:36: RBC 3.85 L, Hgb 10.3 L, Hct 32.6 L, MCH 26.8 L, MCHC 31.6 L, Monocytes # 0.6 H 04/19/20 04:38: Digoxin 0.63 L 04/19/20 04:38: Albumin 3.3 L, Globulin 3.7 H, Albumin/Globulin Ratio 0.9 L 04/19/20 04:38: RBC 3.76 L, Hgb 10.5 L, Hct 32.1 L EKG Reviewed by me: Yes (A. fib on telemetry) Hospitalist ROS - Review of Systems Cardiovascular: denies: chest pain, palpitations, orthopnea, paroxysmal noc. dyspnea, edema, light headedness, other Gastrointestinal: denies: nausea, vomiting, abdominal pain, diarrhea, constipa tion, melena, hematochezia, other - Medication Medications: Active Medications Generic Name Dose Route Start Last Admin Trade Name Freq PRN Reason Stop Dose Admin Acetaminophen 650 mg 04/15/20 16:30 04/17/20 07:17 Acetaminophen 325 Mg Tab PO 650 mg Q4H PRN Administration Headache/Fever/Mild Pain (1-3) Aspirin 325 mg 04/17/20 09:00 04/19/20 09:43 Aspirin 325 Mg Enteric Coated Tablet PO 325 mg DAILY [place] Administration Atorvastatin Calcium 40 mg 04/16/20 21:00 04/18/20 21:16 Atorvastatin Calcium 40 Mg Tab PO 40 mg HS [place] Administration Diltiazem HCl 30 mg 04/18/20 17:57 04/19/20 01:12 Diltiazem Hcl 30 Mg Tablet PO 30 mg Q6H PRN Administration HR >120 sustained Enoxaparin Sodium 40 mg 04/18/20 09:00 04/19/20 09:43 Enoxaparin Sodium 40 Mg/0.4 Ml Syringe SC 40 mg DAILY [place] Administration Sodium Chloride 1,000 mls @ 50 mls/hr 04/17/20 18:15 04/18/20 19:02 Normal Saline 0.9% IV 1,000 mls .Q20H [place] Administration Insulin Human Lispro 0 units 04/15/20 16:47 04/19/20 11:18 Humalog 300 Units/3 Ml Vial SC 3 units .MILD SLIDING SCALE PRN Administration Mild Correctional Scale Insulin Human Lispro 0 units 04/15/20 16:47 04/18/20 21:16 Humalog 300 Units/3 Ml Vial SC 2 unit .BEDTIME SLIDING SC PRN Administration Bedtime Correctional Scale Potassium Chloride 20 meq 04/18/20 17:00 04/19/20 09:43 Potassium Chloride 20 Meq Tab PO 20 meq BID-WM [place] Administration Sodium Chloride 10 ml 04/15/20 16:30 04/16/20 13:57 Flush - Normal Saline 10 Ml Syringe IVF 10 ml PRN PRN Administration Saline Flush - Exam General Appearance: NAD Heart: no gallops, irregular Respiratory: no wheezes, no ronchi Gastrointestinal: non-tender, non-distended, normal bowel sounds Extremities: no cyanosis, no clubbing Neurological: no new deficit Psychiatric: normal affect, A&O x 3 Hosp A/P - Plan DVT proph w/lovenox Patient is a 64-year-old female with diabetes mellitus type 2 and hyperlipidemia presented to the emergency room with stroke-like symptoms. CTA of the head and neck showed complete occlusion of the anterior M2 branch of the right MCA. CT brain showed acute infarction in the right MCA distribution. She was started on aspirin. Chest x-ray showed pulmonary vascular congestion. There was some concern for malignancy on the CTA of the neck. She underwent CT scan of the chest that showed nonspecific mediastinal lymph nodes which were stable since 2016. CT abdomen was negative for acute findings. MRI of the brain showed acute infarction in the anterior division of the right middle cerebral artery with a small amount of hemorrhage. Patient was evaluated by neurology who recommended aspirin with statin. Due to small amount of hemorrhage on the MRI of the brain the case was discussed with PA for Dr. Manrique who recommended repeat CT scan of the brain on 04/20 and to hold anticoagulation except for DVT prophylaxis and aspirin. Patient also had atypical chest pain for which she was evaluated by cardiology. Echocardiogram showed ejection fraction of 50 to 55% with diastolic dysfunction, moderate mitral regurgitation, moderate aortic regurgitation and mild tricuspid regurgitation. She underwent a stress test on 04/16 that was negative for reversible ischemia. On 04/17 patient converted to atrial flutter with heart rate in 130s to 150s. She was started on Multaq that was later discontinued. Her rate was controlled with digoxin. 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 Continue Lovenox for DVT prophylaxis. Discontinue potassium. DC IV fluids if tolerating p.o. Repeat CT brain in a.m.. Restart Metformin. Losartan on hold due to blood pressure on the lower side. Continue PT/OT/speech therapy. Start digoxin at 0.125 mg daily. DC planning
[2020-04-19] MEDS: metFORMIN 500 MG TAB PO SCH (17:19)
[2020-04-19] MEDS: Sodium Chloride 0.9% 1,000 ML IV SCH (17:24)
[2020-04-19] MEDS ORDERED: Mometasone Furoate 30 PUFF 220 MCG INH SCH (18:30)
[2020-04-19] MEDS: Atorvastatin Calcium 40 MG TAB PO SCH (20:29)
--- NOTE | 2020-04-20 08:19 | CT ---
Head CT without contrast 04/20/2020: COMPARISON: 04/17/2020 HISTORY: Stroke with hemorrhage, follow-up exam TECHNIQUE: Axial CT imaging at 5 mm intervals from vertex through skull base without contrast FINDINGS: The visualized paranasal sinuses and mastoid air cells demonstrate no acute findings. The p atient is status post left mastoidectomy. No displaced calvarial fracture. There is hypodensity consistent with cytotoxic edema within the MCA territory on the right which does not appear significa ntly changed when compared to the 04/17/2020 examination. There is hyperdensity within the inferior anterior aspect of this area of cytotoxic edema, best seen on axial image 9, consistent with associat ed intra-axial hemorrhage measuring up to 1.6 cm in AP dimension, stable. No significant midline shift or mass effect. IMPRESSION: Findings suggesting a stable hemorrhagic infarction of the right MCA territory.
[2020-04-20] MEDS ORDERED: Cyanocobalamin (Vitamin B-12) 1,000 MCG TAB PO SCH (09:00)
[2020-04-20] MEDS ORDERED: Ascorbic Acid 500 mg Chewable Tablet PO SCH (09:00)
[2020-04-20] MEDS ORDERED: Fish Oil 1,000 MG CAP PO SCH (09:00)
[2020-04-20] MEDS: Aspirin 325 mg Enteric Coated Tablet PO SCH (09:21)
[2020-04-20] MEDS: metFORMIN 500 MG TAB PO SCH (09:22)
[2020-04-20] MEDS: Enoxaparin Sodium 40 MG/0.4 ML SYRINGE SC SCH (09:22)
--- NOTE | 2020-04-20 10:06 | PRG ---
DATE OF SERVICE: 04/20/2020 SUBJECTIVE: Ms. Cameron is doing okay. OBJECTIVE: VITAL SIGNS: Resting heart rate is about 110, it goes up to 130 with minimal exertion. LUNGS: Clear. CARDIAC: Irregularly irregular. ABDOMEN: Soft, nontender. EXTREMITIES: No edema. ASSESSMENT: 1. Atrial fibrillation, rate not well controlled. 2. History of hypotension with IV cardizem. PLAN: Start Cardizem CD 120 mg a day and if blood pressure is adequate and heart rate adequately controlled this afternoon, can go home. Also is on anticoagulation due to the recent stroke. ADDENDUM: The patient is only receiving enoxaparin here. Anticoagulation is being held due to some intracranial bleeding. Decision about when to resume anticoagulation would need input from Neurology. Job ID: [id number]
[2020-04-20] MEDS: HumaLOG 300 UNITS/3 ML VIAL SC PRN (11:54)
[2020-04-20 15:45] VITALS: BP 112/63; TEMP 98.3
[2020-04-21] MEDS ORDERED: Aspirin 81 mg Enteric Coated Tablet PO SCH (09:00)
--- NOTE | 2020-04-21 13:24 | PDOC.DS.DS ---
Provider - Provider Date of Admission: 04/15/20 15:01 Date of Discharge: 04/20/20 Admitting Provider: Ascencion Galvan DO Primary Care Physician: [facility] Course - Hospital Course Hospital Course: Patient is a 64-year-old female with diabetes mellitus type 2 and hyperlipidemia presented to the emergency room with stroke-like symptoms. CTA of the head and neck showed complete occlusion of the anterior M2 branch of the right MCA. CT brain showed acute infarction in the right MCA distribution. She was started on aspirin. Chest x-ray showed pulmonary vascular congestion. There was some concern for malignancy on the CTA of the neck. She underwent CT scan of the chest that showed nonspecific mediastinal lymph nodes which were stable since 2016. CT abdomen was negative for acute findings. MRI of the brain showed acute infarction in the anterior division of the right middle cerebral artery with a small amount of hemorrhage. Patient was evaluated by neurology who recommended aspirin with statin. Due to small amount of hemorrhage on the MRI of the brain the case was discussed with PA for Dr. Manrique who recommended repeat CT scan of the brain on 04/20 and to hold anticoagulation except for DVT prophylaxis and aspirin. Patient had a repeat CT brain on 04/20 that showed stable hemorrhage. Neurosurgery recommended to hold anticoagulation for total of 2 weeks from admission. Patient can be started on Eliquis after the [address] Manrique's PA Robinson wasserman. Patient will be on aspirin only until then. Patient also had atypical chest pain for which she was evaluated by cardiology. Echocardiogram showed ejection fraction of 50 to 55% with diastolic dysfunction, moderate mitral regurgitation, moderate aortic regurgitation and mild tricuspid regurgitation. She underwent a stress test on 04/16 that was negative for reve rsible ischemia. On 04/17 patient converted to atrial flutter with heart rate in 130s to 150s. She was started on Multaq that was later discontinued. Her rate was controlled with digoxin. Case was discussed with cardiology Dr. Katz on the day of discharge who agreed with aspirin for 2 weeks and then switching to Eliquis. Patient will follow up with Dr. Steward as outpatient. Home health care has been arranged. Case was discussed with the family and the patient in detail who stated understanding. 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 Okay to continue aspirin with Lovenox for DVT prophylaxis per neurosurgery Repeat CT brain on 04/20 New onset atrial fibrillation/flutter with RVR not a candidate for anticoagulation due to hemorrhagic conversion Atypical chest pain with negative stress test Hyperlipidemia Chronic diastolic heart failure Obesity with a BMI 37.2 Chronic anemia probably due to nutritional deficiency Hypokalemia Mediastinal lymphadenopathy of unclear etiology Swallow dysfunction Resuscitation Status: 04/15/20 16:30 Resuscitation Status Routine Co-Sign Provider: Resuscitation Status: FULL: Full Resuscitation Discussed with: pt and daughter - Labs Lab Results: 04/19/20 04:38 04/19/20 04:38 - Physical Exam Vitals: Weight Weight 187 lb 14.4 oz Physical Exam: The patient was seen and examined on the day of discharge. Plan - Discharge Medications Prescriptions: Diltiazem CD [Cardizem CD] 120 mg PO DAILY #30 cap Atorvastatin Calcium [Lipitor] 40 mg PO HS #30 tab Home Medications: Medication Instructions Recorded Confirmed Type Ascorbic Acid [Vitamin C] 1,000 mg PO DAILY 04/15/20 04/15/20 History Cranberry Fruit Extract [Cranberry] 500 mg PO DAILY 04/15/20 04/15/20 History Cyanocobalamin (Vitamin B-12) 5,000 mcg PO DAILY 04/15/20 04/15/20 History [Vitamin B12] Fish Oil 500 mg PO DAILY 04/15/20 04/15/20 History Fluticasone Propionate [Flovent 1 spray NASAL BID 04/15/20 04/15/20 History Diskus] metFORMIN [Glucophage] 500 mg PO BID-WM 04/15/20 04/15/20 History Aspirin [Ecotrin Low Strength] 81 mg PO DAILY tab 04/20/20 Rx Atorvastatin Calcium [Lipitor] 40 mg PO HS #30 tab 04/20/20 Rx Diltiazem CD [Cardizem CD] 120 mg PO DAILY #30 cap 04/20/20 Rx Allergies: No Known Allergies Allergy (Verified 04/15/20 18:30) - Discharge Instructions Discharge Instructions:: ok to start Eliquis after 04/30 per Neurosurgery - Dr Manrique - Follow up Plan Referrals: Cardiac Rehab - [facility] [Outside] - 7 Days (Your doctor has ordered Outpatient Cardiac Rehab for you to begin within 1-2 weeks after you go home from the hospital. The location nearest to you is the [facility]. The front office in [place] will call you in 1-2 days to get you scheduled for your evaluation. If you do not receive a call, please reach out to them at [phone] and request an appointment. ) [facility] [Outside] [facility] [Primary Care Provider] - Meir Melgar MD [Active] - 7 Days Jimi Steward MD [Active] - (follow-up appointment on MondayApril 27 @ 0915) Disposition: HOME HEALTH Quality - Care Measures CORE MEASURES:: Stroke/TIA - Stroke/TIA Did you prescribe antithrombotic therapy?: Yes Did you prescribe anticoagulant for A Fib/Flutter?: No Specify reason for no DC anticoagulant: Anticoagulant not tolerated Did you prescribe a statin medication?: Yes
== END 2020-04-20 17:10 | disposition home health service (06) | DRG 64 ==
LOC: ERS 12:13 → 2SE 15:01
PROVIDERS: ADMIT Family Medicine; ATTEND Internal Medicine
DX: I63.311 Cerebral infarction due to thrombosis of right middle cerebral artery (principal); I61.9 Nontraumatic intracerebral hemorrhage, unspecified; G81.94 Hemiplegia, unspecified affecting left nondominant side; I50.32 Chronic diastolic (congestive) heart failure; I48.92 Unspecified atrial flutter; R29.810 Facial weakness; R47.1 Dysarthria and anarthria; E78.5 Hyperlipidemia, unspecified; E11.9 Type 2 diabetes mellitus without complications; F41.9 Anxiety disorder, unspecified; R47.81 Slurred speech; R13.10 Dysphagia, unspecified; I11.0 Hypertensive heart disease with heart failure; R59.1 Generalized enlarged lymph nodes; R07.81 Pleurodynia; E66.9 Obesity, unspecified; Z85.43 Personal history of malignant neoplasm of ovary; Z90.49 Acquired absence of other specified parts of digestive tract; Z90.89 Acquired absence of other organs; Z79.84 Long term (current) use of oral hypoglycemic drugs; Z79.899 Other long term (current) drug therapy; Z68.36 Body mass index [BMI] 36.0-36.9, adult; I48.91 Unspecified atrial fibrillation; R07.89 Other chest pain; Z68.37 Body mass index [BMI] 37.0-37.9, adult; E87.6 Hypokalemia; D53.9 Nutritional anemia, unspecified; Z20.828 Contact with and (suspected) exposure to other viral communicable diseases
CPT/HCPCS: 36415; 36416; 70450; 70496; 70498; 70551; 71045; 71260; 74177; 78452; 80048; 80053; 80061; 80162; 81001; 83735; 83880; 84100; 84443; 84484; 85025; 85610; 85730; 87635; 93005; 93017; 93306; 93798; 96374; A9500; J1160; J1650; J1940; J2785; J3490; J7050; Q9967; U0003

== ENCOUNTER 2020-05-22 14:43 | Outpatient (CLI) | payer MEDICARE ==
--- NOTE | 2020-05-22 15:16 | CT ---
Head CT without contrast 05/22/2020: COMPARISON: 04/20/2020 HISTORY: Reevaluate hemorrhagic infarction TECHNIQUE: Axial CT imaging at 5 mm intervals from vertex through skull base without contrast. Mckeon l and sagittal reformatted imaging obtained. FINDINGS: The visualized paranasal sinuses and mastoid air cells are well-aerated. The patient is sta tus post left mastoidectomy. There is subcortical and cortical hypodensity involving the posterior inferior right frontal lobe, co nsistent with the previously noted infarction of the right MCA territory. The prior examination demonstrated an area of associated hemorrhage along the inferior medial margin of this infarction. On today's examination this hemorrhage is no longer visualized. There are areas of mild linear increased density within this infarction suggesting areas of calcification, laminar necrosis and/or m inimal residual hemorrhage. No new intracranial hemorrhage. IMPRESSION: Evidence of prior right MCA infarction as detailed above.
== END 2020-05-22 14:44 | disposition home or self-care (01) ==
LOC: BICCT 14:43
PROVIDERS: ATTEND Internal Medicine Cardiovascular Disease
DX: I63.411 Cerebral infarction due to embolism of right middle cerebral artery (principal)
CPT/HCPCS: 70450

== ENCOUNTER 2020-06-10 11:07 | Outpatient (CLI) | payer MEDICARE | END 2020-06-10 11:08 | disposition home or self-care (01) | LOC: BICMAMMO 11:07 | PROVIDERS: ATTEND Nurse Practitioner Family | DX: Z12.31 Encounter for screening mammogram for malignant neoplasm of breast (principal) | CPT/HCPCS: 77063; 77067 ==

== ENCOUNTER 2021-05-24 06:21 | Day surgery (SDC) | payer MEDICARE ==
[2021-05-21 10:17] VITALS: BMI 30.9
[2021-05-24] MEDS ORDERED: PROPOFOL 40 ML ONE (07:10)
== END 2021-05-24 10:00 | disposition home or self-care (01) ==
LOC: CCL 06:21
PROVIDERS: ATTEND Internal Medicine Cardiovascular Disease
PROC: B24BZZ4 Ultrasonography of Heart with Aorta, Transesophageal (ICD-10-PCS; principal; 2021-05-24)
PROC: 5A2204Z Restoration of Cardiac Rhythm, Single (ICD-10-PCS; 2021-05-24)
DX: I48.0 Paroxysmal atrial fibrillation (principal); I08.1 Rheumatic disorders of both mitral and tricuspid valves; I70.0 Atherosclerosis of aorta; E78.00 Pure hypercholesterolemia, unspecified; E11.9 Type 2 diabetes mellitus without complications; E66.9 Obesity, unspecified; Z68.31 Body mass index [BMI] 31.0-31.9, adult; Z86.73 Personal history of transient ischemic attack (TIA), and cerebral infarction without residual deficits; Z91.19 Patient's noncompliance with other medical treatment and regimen; Z79.01 Long term (current) use of anticoagulants; Z79.82 Long term (current) use of aspirin; Z79.84 Long term (current) use of oral hypoglycemic drugs; Z79.899 Other long term (current) drug therapy
CPT/HCPCS: 36416; 92960; 93005; 93010; 93312; J2704